=== PATIENT | female | born 1990 ===

== ENCOUNTER 2017-04-10 07:08 | Emergency (ER) | payer OTHER ==
--- NOTE | 2017-04-10 08:09 | ED PDOC ---
HPI: Abdomen Chief Complaint (Provider): Abdominal pain History Per: Patient History/Exam Limitations: no limitations Onset/Duration Of Symptoms: Hrs (since 2:00 am), Persistent Outside of [place] travel?: No Current Symptoms Are (Timing): Still Present Context: Food (She ate chicken fried never tried before.) Severity: Moderate Pain Scale Rating Of: 7 Location Of Pain/Discomfort: RUQ, Epigastric, LUQ Quality Of Discomfort: Cramping Associated Symptoms: Nausea, Vomiting (Vomiting today small amount with rest of food, no blood.), Diarrhea (1 diarrhea this morning, small amount, no blood, no mucus.), Back Pain. denies: Fever, Chills Exacerbating Factors: Walking Alleviating Factors: None Last Bowel Movement: Today Additional History Per: Patient Abnormal Vaginal Bleeding: No Last Menstral Period: 04/09/2017 <Spencer Rogel - Last Filed: 04/10/17 09:46> <Zahra Vanessa - Last Filed: 04/10/17 10:16> Time Seen by Provider: 04/10/17 07:38 Chief Complaint (Nursing): Abdominal Pain Additional Complaint(s): CC:Abdominal pain. HPI: 26 yo female patient without PMH presents to the ED complaining of an upper abdominal pain since 2:00 am that start gradual, meanly in the epigastric area,7/10, cramping, associated with vomiting, nausea and non bloody diarrhea, vomiting containing rest of food, no blood. She takes Advil for pain w/o relief. She reports that ate some chicken fried yesterday that she never tried before. Also reports mild discomfort in lower abdomen related with her period. Denies fever,chills, dysuria, headache, injury, recent travel. ROS: negative except as HPI. PMH: none PSH: none SH: denies smoking, alcohol and recreational drugs. Meds: Advil this morning. Allergies: peanut. (Spencer Rogel) Supervising Attending Note - Supervising Attending Note The Documented history was done by the: Physician Regional Facilities Manager The documented physical exam was done by the: Physician Regional Facilities Manager The documented procedures were done by the: Physician Regional Facilities Manager - Attestation: I have personally seen and examined this patient.: Yes I have fully participated in the care of the patient.: Yes I have reviewed all pertinent clinical information: Yes <Zahra Vanessa - Last Filed: 04/10/17 10:16> Past Medical History Reviewed: Nursing Documentation, Vital Signs - Surgical History Surgical History: No Surg Hx - Family History Family History: States: Unknown Family Hx - Living Arrangements Living Arrangements: With Family - Social History Current smoker - smoking cessation education provided: No Alcohol: None Drugs: Denies - Immunization History Hx Tetanus Toxoid Vaccination: No Hx Influenza Vaccination: No Hx Pneumococcal Vaccination: No <Spencer Rogel - Last Filed: 04/10/17 09:46> <Zahra Vanessa - Last Filed: 04/10/17 10:16> Vital Signs: Last Vital Signs Temp 98.7 F 04/10/17 08:53 Pulse 88 04/10/17 08:53 Resp 18 04/10/17 08:53 BP 98/56 L 04/10/17 08:53 Pulse Ox 98 04/10/17 09:56 - Home Medications Home Medications: Ambulatory Orders Medication Instructions Recorded Acetaminophen [8 Hour Pain Relief] 650 mg PO TID PRN #12 tablet.er 04/10/17 Famotidine [Pepcid] 20 mg PO BID #20 tab 04/10/17 - Allergies Allergies/Adverse Reactions: Allergies Allergy/AdvReac Type Severity Reaction Status Date / Time peanut Allergy ITCHING Verified 04/10/17 07:19 Review of Systems ROS Statement: Except As Marked, All Systems Reviewed And Found Negative Constitutional: Negative for: Fever, Chills, Sweats, Weakness, Malaise Eyes: Negative for: Pain, Vision Change ENT: Negative for: Ear Pain, Mouth Pain, Throat Pain Cardiovascular: Negative for: Chest Pain, Edema Respiratory: Negative for: Cough, Shortness of Breath Gastrointestinal: Positive for: Nausea, Vomiting, Abdominal Pain, Diarrhea. Negative for: Melena Genitourinary Female: Negative for: Dysuria, Pelvic Pain Musculoskeletal: Negative for: Neck Pain, Leg Pain Skin: Negative for: Rash Neurological: Negative for: Weakness, Numbness, Confusion, Altered Mental Status Psych: Negative for: Anxiety <Spencer Rogel - Last Filed: 04/10/17 09:46> Physical Exam - Reviewed Nursing Documentation Reviewed: Yes Vital Signs Reviewed: Yes - Physical Exam Appears: Positive for: Well, No Acute Distress Head Exam: Positive for: ATRAUMATIC, NORMOCEPHALIC Skin: Positive for: Normal Color, Warm, Dry Eye Exam: Positive for: Normal appearance, EOMI, PERRL ENT: Positive for: Normal ENT Inspection Neck: Positive for: Normal, Supple Cardiovascular/Chest: Positive for: Regular Rate, Rhythm. Negative for: Murmur Respiratory: Positive for: Normal Breath Sounds Pulses-Carotid (L): 2+ Pulses-Carotid (R): 2+ Pulses-Dorsalis Pedis (L): 2+ Pulses-Dorsalis Pedis (R): 2+ Pulses-Post. Tibialis (L): 2+ Pulses-Post. Tibialis (R): 2+ Pulses-Radial (L): 2+ Pulses-Radial (R): 2+ Gastrointestinal/Abdominal: Positive for: Bowel Sounds, Soft, Tenderness (mild tenderness on epigastric area). Negative for: Mass Back: Positive for: Normal Inspection Extremity: Positive for: Normal ROM. Negative for: Tenderness, Pedal Edema, Calf Tenderness Neurologic/Psych: Positive for: Alert, telecommunications repairer II-XII, Oriented <Spencer Rogel - Last Filed: 04/10/17 09:46> - Laboratory Results Result Diagrams: 04/10/17 08:40 04/10/17 08:40 - ECG O2 Sat by Pulse Oximetry: 98 <Spencer Rogel - Last Filed: 04/10/17 09:46> - Laboratory Results Result Diagrams: 04/10/17 08:40 04/10/17 08:40 <Zahra Vanessa - Last Filed: 04/10/17 10:16> Medical Decision Making <Spencer Rogel - Last Filed: 04/10/17 09:46> <Zahra Vanessa - Last Filed: 04/10/17 10:16> Medical Decision Making: Impression: 26 yo female patient without PMH presents to the ED complaining of an upper abdominal pain. Plan: CBC CMP. Lipase. test, urine. Urine dipstick. IV NS. Pepcid. Zofran. Tylenol. Reeval. Time: 9:40 Impression: reevaluated patient reports feel better, denies nausea, vomiting and abdominal pain. Plan: Discharge to home. Return to ED if worsening symptoms or new symptoms. Pepcid tylenol. (Spencer Rogel) patient is feeling better after meds and IVF. She no longer has pain. Labs reviewed. Will discharge (Zahra Vanessa) Disposition <Spencer Rogel - Last Filed: 04/10/17 09:46> - Patient ED Disposition Is Patient to be Admitted: No Doctor Will See Patient In The: Office Counseled Patient/Family Regarding: Diagnosis, Need For Followup, Rx Given - Disposition Disposition: Routine/Home Disposition Time: 10:16 - POA Present On Arrival: None <Zarha Vanessa - Last Filed: 04/10/17 10:16> - Clinical Impression Clinical Impression: GERD (gastroesophageal reflux disease) - Disposition Referrals: [facility] [Outside] Condition: IMPROVED Prescriptions: Acetaminophen [8 Hour Pain Relief] 650 mg PO TID PRN #12 tablet.er PRN Reason: Pain, Mild (1-3) Famotidine [Pepcid] 20 mg PO BID #20 tab Instructions: Diet for Ulcers and Gastritis (ED), Gastroesophageal Reflux Disease (ED) Print Language: THAI
[2017-04-10] MEDS ORDERED: Sodium Chloride 0.9% 1,000 ML IV STA (08:13)
[2017-04-10 08:55] VITALS: BP 98/56; PULSE 88; RESP 18; TEMP 98.7
[2017-04-10 09:04] LABS: BASO % 0.2 % (0.0-2.0); EOS % 0.2 % (0.0-4.0); HEMOGLOBIN 14.2 g/dL (12.0-16.0); LYMPH % 6.3 % (20.0-40.0); MEAN CELL VOLUME 85.7 fl (81.0-99.0); MEAN CORPUSCULAR HGB CONC 33.8 g/dL (33.0-37.0); MEAN PLATELET VOLUME 7.7 fl (7.2-11.7); MONO # 0.8 K/uL (0.0-0.8); MONO % 5.2 % (0.0-10.0); NEUT # 13.5 K/uL (1.8-7.0); NEUT % 88.1 % (50.0-75.0); PLATELET COUNT 354 K/uL (130-400); RED CELL DISTRIBUTION WIDTH 14.1 % (11.5-14.5); WHITE BLOOD COUNT 15.3 K/uL (4.8-10.8)
[2017-04-10 09:07] VITALS: O2SAT 98
[2017-04-10 09:10] LABS: ALB/GLOB RATIO 1.3 (1.0-2.1); ALBUMIN 4.9 g/dL (3.5-5.0); ALT/SGPT 37 U/L (9-52); AST/SGOT 36 U/L (14-36); BLOOD UREA NITROGEN 16 mg/dl (7-17); CALCIUM 9.6 mg/dL (8.4-10.2); GFR AFRICAN-AMERICAN > 60; GFR NON-AFRICAN AMERICAN > 60; LIPASE 40 U/L (23-300)
[2017-04-10 10:12] LABS: LYMPHOCYTE 7 % (20-50); MONOCYTE 4 % (0-10); NEUTROPHIL 89 % (42-75); PLATELET ESTIMATE NORMAL (NORMAL); TOTAL CELLS COUNTED 100
== END 2017-04-10 10:22 | disposition home or self-care (01) ==
LOC: H.ER 07:08
DX: K21.9 Gastro-esophageal reflux disease without esophagitis (principal)